=== PATIENT | male | born 1970 | race Two or more races ===

== ENCOUNTER 2023-06-21 12:36 | Emergency (ER) | payer OTHER ==
[~2023-06-21] VITALS: Ht 162.6 cm; Wt 70.0 kg
[2023-06-21 12:59] VITALS: TEMP 98.9
[2023-06-21] MEDS ORDERED: ASCO100061 PO (13:01)
[2023-06-21] MEDS ORDERED: CORTSOL AS (14:49)
[2023-06-21 15:02] VITALS: BP 158/90; PULSE 88; RESP 14
[2023-06-21] MEDS: NEOMYCIN/POLYMYXIN B/HYDROCORT 10 ML OTIC SOLUTION AS ONE (15:19)
== END 2023-06-21 15:22 | disposition home or self-care (01) ==
LOC: EMS 12:36
DX: H60.92 Unspecified otitis externa, left ear (principal)
CPT/HCPCS: 99283